=== PATIENT | male | born 1965 | race Caucasian/White ===

== ENCOUNTER 2020-11-06 13:28 | Emergency (ER) | payer MEDICARE, MEDICAID ==
[~2020-11-06] VITALS: Ht 182.9 cm; Wt 78.0 kg
[2020-11-06 13:42] VITALS: BP 122/84
--- NOTE | 2020-11-06 13:44 | NUR ---
Pt BIB [facility] from home. Pt was placed on a Legal 2000 for inability to care for self. Pt apparently lives with his sister who is reported as his caregiver. Per EMS pt's sister at some point last night or yesterday. [employer] responded to a call reporting a body and found pt. The [employer] officer reported on the legal hold that the house was dirty with animal poop and roaches. Pt denies SI/HI, reports "I can take care of myself, I take my medicine every day." Pt's clothes are dirty, pt reports he hasn't had any food today, however pt's skin and nails appear clean. Pt denies any medical complaint, is requesting to leave. POC discussed with pt. Pt agrees to stay and speak with the psych [facility] [employer]. Pt able to change into hospital gown, all belongings placed in one bag and labeled with pt information. Pt provided with TV remote per request, will order meal tray for pt. Pt denies other needs.
--- NOTE | 2020-11-06 14:04 | NUR ---
Jaswant GLASER at bedside to speak with pt.
--- NOTE | 2020-11-06 14:33 | NUR ---
Pt provided meal tray and assisted with setup. Pt denies other needs. Anna Marie SW to speak with pt when she is available.
--- NOTE | 2020-11-06 15:09 | NUR ---
Pt ate all of meal tray provided while speaking with Anna Marie EUBANKS. Legal hold decertified by Jaswant GLASER. All pt belongings returned to him.
== END 2020-11-06 15:12 | disposition home or self-care (01) ==
LOC: ED 15:05
DX: F20.89 Other schizophrenia (principal); G89.29 Other chronic pain
CPT/HCPCS: 99285